=== PATIENT | male | born 1965 | race Caucasian/White ===

== ENCOUNTER 2016-03-07 11:06 | Outpatient (CLI) | payer OTHER ==
[~2016-03-07] VITALS: Ht 165.1 cm; Wt 70.0 kg
[~2016-03-07 11:06] MED LIST: ALPR0.25 PO; ASPI-664 PO; ATOR40TA68 PO; BENA10TA48 PO; METO-448 PO
[2016-03-07 11:31] VITALS: Ht 165.1 cm; Wt 70.0 kg
[2016-03-07 11:32] VITALS: BP 133/77; PULSE 60; RESP 16
--- NOTE | 2016-03-07 11:49 | PN ---
Date/Time of Note Date/Time of Note DATE: 03/07/16 TIME: 11:44 Outpatient Progress Note Chief Complaint Hypertension/hyperlipidemia/left arm numbness/anxiety HPI Hypertension/No headache or dizziness, no lightheadedness, on medication, no side effect of medication, Hyperlipidemia/no xanthoma, on medication, side effect of medication, Left arm numbness/patient had left arm numbness, patient was recently hospitalized, at present patient does not have any numbness, no tingling no weakness, no pain while activity or exercise, Anxiety/patient has mild anxiety, patient stable at present, on medication on when necessary basis, Review of Systems Const: No Fever, no chills, no Wt. loss, no Fatigue, normal appetite, no diaphoresis. Eyes: No pain, no discharge, no redness, no visual change, no foreign body. ENT: No pain, no bleeding, no congestion, no sore throat, no dysphagia, no discharge or rhinitis. Lymph: No adenopathy, no tender nodes, no lymphedema. Resp: No SOB, no cough, no sputum, no wheezing, no chest pain. CV: No chest pain, no palpitaions, no SCHAEFER, no PND, no edema. GI: Normal appetite, no pain, no nausea, no vomiting, no diarrhea, no blood, no constipation. : No frequency, no urgency, no dysuria, no hematuria, no flank pain, no discharge, no bleeding. Musc: No bone/joint pain, no back pain, no neck pain, no knee pain, no restricted ROM. Skin: No rash, no skin lesions, no erythema, no laceration, no bruising, no pruritus. Neuro: No REYES, no dizziness, no syncope, no seizure, no focal-weakness. Endo: No polyuria, no polydypsia, no dry-skin, no temp-intolerance. Psych: No hallucinations, no depression, no anxiety, no suicidal ideation. Ext: No edema, no pain, no ulcer, no weakness. Physical Exam Vital Signs Date Time Temp Pulse Resp B/P Pulse Ox O2 Delivery O2 Flow Rate FiO2 03/07/16 11:32 98.2 60 16 133/77 98 Room Air General Appearance: A [50 year-old [male who appears well-developed, well- nourished, in no acute distress. HEENT: Head normocephalic, atraumatic. Pupils equal, round, reactive to light and accommodate. Sclerae are no jaundice. Nasal turbinates pink without erythema or nasal discharge. Mucous membranes pink and moist without lesions. Oropharynx clear without any exudate or discharge. NECK: Supple. Trachea midline, No thyromegaly, No cervical lymphadenopathy, No mass, No carotid bruits, No JVD, Carotid pulses 2+ bilaterally. PULMONARY: Clear to auscultaion bilaterally, No retractions, Chest expansion symmetric bilaterally, no rales, no ronchi, no dulness on percussion. CARDIAC: Normal SI and S2, Regular rate and rythm, no murmur, gallop, or rub. GASTROINTESTINAL: Abdomen is soft, non-tender, Non Rigid, No distention, Positive bowel sounds x4 quadrants, Liver normal. SKIN: Warm, dry, no rash, no bruise, no echmosis. EXTREMITIES: Bilateral lower extremities normal, no edema, no phlabitus, pulse palpable, no contracture. MUSCULOSKELETAL: Spine Normal, Non-tender, Normal range of motion, No swelling, no deformity, no clubbing, or cyanosis, the patient has no edema to bilateral lower extremities, dorsalis pedis pulses palpable bilaterally. NEUROLOGIC: The patient is awake, alert, oriented, responding to yes/no questions appropriately, moving all extremities, cranial nerve intact, normal strenght, normal power, normal coordination, normal gait. Allergies Coded Allergies: No Known Allergy (Unverified , 03/01/16) PMH Hypertension/hyperlipidemia/anxiety Social Hx No smoking or drinking no drugs, Family Hx Mother had heart problem, at age of 70 suddenly, Patient History: Cardiac disorder 30 MOTHER FH: BPH (benign prostatic hypertrophy) 33 FATHER Assessment/Plan Impression Hypertension/hyperlipidemia/left arm numbness resolved Anxiety Plan Patient education done about hypertension and hyperlipidemia, and direct education, reduce the calorie and low fat diet increase activity, Patient has all the medication, patient taking regularly,, no side effect of medication, Patient encouraged to follow with the primary care physician, Monitor cholesterol and blood pressure closely, Medications Home Meds Active Scripts Atorvastatin* (Atorvastatin*) 40 Mg Tablet, 40 MG PO QHS, #30 TAB Prov:JEFFREY BURCIAGA MD 03/01/16 Alprazolam* (Xanax*) 0.25 Mg Tablet, 0.25 MG PO Q8H Y for ANXIETY for 14 Days, TAB Prov:JEFFREY BURCIAGA MD 03/01/16 Metoprolol Tartrate* (Lopressor*) 25 Mg Tab, 12.5 MG PO BID for 30 Days, #60 TAB Prov:JEFFREY BURCIAGA MD 03/01/16 Aspirin* (Aspirin* EC) 81 Mg Tablet.dr, 81 MG PO DAILY for 90 Days, #90 Prov:JEFFREY BURCIAGA MD 03/01/16 Reported Medications Benazepril Hcl* (Benazepril Hcl*) 10 Mg Tablet, 10 MG PO DAILY, #30 TAB 03/01/16 YOSELYN ENGEL MD Mar 07, 2016 11:49
== END 2016-03-07 17:00 | disposition home or self-care (01) ==
LOC: DCC 11:06
PROVIDERS: ATTEND Internal Medicine
DX: I10 Essential (primary) hypertension (principal); E78.5 Hyperlipidemia, unspecified; F41.9 Anxiety disorder, unspecified; R20.2 Paresthesia of skin
CPT/HCPCS: G0463

== ENCOUNTER 2016-06-01 11:30 | Emergency (ER) | payer OTHER ==
[~2016-06-01] VITALS: Wt 71.0 kg
[2016-06-01] MEDS ORDERED: SODI30SP2 NS (11:56)
[2016-06-01] MEDS ORDERED: OXYM30SP83 NASAL (11:56)
--- NOTE | 2016-06-01 11:59 | ERD ---
ER Documentation Chief Complaint Date/Time DATE: 06/01/16 TIME: 11:58 Chief Complaint NOSE BLEED HPI This 50-year-old male presents with intermittent nosebleed on the right side since last night. It recurs with rubbing his nose. He denies any bleeding from other sites of his body such as gums, bowel or bladder. Denies any significant recent URI or fever. Has a history of hypertension but has normal blood pressure at triage. ROS All systems reviewed and are negative except as per history of present illness. Medications Home Meds Active Scripts Sodium Chloride (Saline Nasal [place]) 30 Ml [place], 30 ML NS QID for 7 Days, SPRAY Prov:MOUSTAPHA STERN MD 06/01/16 Atorvastatin* (Atorvastatin*) 40 Mg Tablet, 40 MG PO QHS, #30 TAB Prov:JEFFREY BURCIAGA MD 03/01/16 Alprazolam* (Xanax*) 0.25 Mg Tablet, 0.25 MG PO Q8H Y for ANXIETY for 14 Days, TAB Prov:JEFFREY BURCIAGA MD 03/01/16 Metoprolol Tartrate* (Lopressor*) 25 Mg Tab, 12.5 MG PO BID for 30 Days, #60 TAB Prov:JEFFREY BURCIAGA MD 03/01/16 Aspirin* (Aspirin* EC) 81 Mg Tablet.dr, 81 MG PO DAILY for 90 Days, #90 Prov:JEFFREY BURCIAGA MD 03/01/16 Reported Medications Benazepril Hcl* (Benazepril Hcl*) 10 Mg Tablet, 10 MG PO DAILY, #30 TAB 03/01/16 Discontinued Scripts Oxymetazoline Hcl (Nasal [place] Sinus) 30 Ml [place], 2 SPRAYS NASAL QID for 7 Days , #1 BOTTLE Prov:MOUSTAPHA STERN MD 06/01/16 Allergies Allergies: Coded Allergies: No Known Allergy (Unverified , 03/01/16) PMhx/Soc History of Surgery: Yes (appendicitis) Anesthesia Reaction: No Hx Neurological Disorder: No Hx Respiratory Disorders: No Hx Cardiac Disorders: Yes (HTN) Hx Psychiatric Problems: No Hx Miscellaneous Medical Probl: Yes (Anemia) Hx Alcohol Use: No Hx Substance Use: No Hx Tobacco Use: No Physical Exam Vitals Vital Signs Date Time Temp Pulse Resp B/P Pulse Ox O2 Delivery O2 Flow Rate FiO2 06/01/16 11:33 98.0 72 18 121/71 99 Physical Exam Const: [] Alert, [id number] per Head: Atraumatic Eyes: Normal Conjunctiva ENT: Normal External Ears, Nose and Mouth.. There is inflamed blood vessels in the anterior naris without active bleeding. There is no septal hematoma or deformities. Neck: Full range of motion..~ No meningismus. Resp: Clear to auscultation bilaterally Cardio: Regular rate and rhythm, no murmurs Abd: Soft, non tender, non distended. Normal bowel sounds Skin: No petechiae or rashes Back: No midline or flank tenderness Ext: No cyanosis, or edema Neur: Awake and alert Psych: Normal Mood and Affect Procedures/MDM Patient presents with a history of intermittent epistaxis since last night without current bleeding. He was advised on proper stoppage of nosebleeds. Patient was discharged home with a prescription of saline nasal spray and instructions to recheck for persistent bleeding despite conservative treatment. He was otherwise advised follow-up with his primary doctor this week or for new or worsening symptoms as directed. The patient was stable with no new complaints during the ER course. Clinically, there is no current evidence to suggest meningitis, sepsis, acute abdomen, pneumonia, acute coronary syndrome, pulmonary embolism, or any other emergent condition appearing to require further evaluation or hospitalization. The patient should certainly return for any new or worsening symptoms per the aftercare instructions. They should otherwise follow-up with her primary care doctor for reevaluation this week. Departure Diagnosis: Primary Impression: Epistaxis Condition: Stable Patient Instructions: Epistaxis (Adult) Additional Instructions: Apply pressure as directed for 1 minute as needed for nosebleed. Recheck for bleeding despite pressure, new or worsening symptoms. MOUSTAPHA STERN MD Jun 01, 2016 11:59
== END 2016-06-01 12:23 | disposition home or self-care (01) ==
LOC: FTE 11:30
DX: R04.0 Epistaxis (principal); I10 Essential (primary) hypertension; Z79.82 Long term (current) use of aspirin
CPT/HCPCS: 99283

== ENCOUNTER 2017-04-28 11:52 | Emergency (ER) | END 2017-04-28 13:25 | disposition left against medical advice (07) ==